=== PATIENT | male | born 1960 | race Two or more races ===

== ENCOUNTER 2021-07-23 10:46 | Emergency (ER) | payer OTHER ==
[~2021-07-23] VITALS: Ht 157.5 cm; Wt 65.0 kg
--- NOTE | 2021-07-23 14:41 | NUR ---
Pt ambulatory to room from lobby at this time.
--- NOTE | 2021-07-23 14:41 | NUR ---
PT PRESENTS WITH C/O RIGHT SIDE FACIAL DROOP AND PAIN, STATES HX OF BELLS PALSY. NEEDS WORK NOTE.
[2021-07-23 14:45] VITALS: BP 158/83
--- NOTE | 2021-07-23 14:50 | NUR ---
DR. VENEGAS AT BEDSIDE.
== END 2021-07-23 15:34 | disposition home or self-care (01) ==
LOC: ED 15:25
DX: G51.0 Bell's palsy (principal); Z87.891 Personal history of nicotine dependence
CPT/HCPCS: 99281